=== PATIENT | female | born 1980 | race Caucasian/White ===

== ENCOUNTER 2018-02-16 08:49 | Emergency (ER) | payer OTHER ==
[~2018-02-16] VITALS: Ht 152.4 cm; Wt 76.7 kg
[2018-02-16 09:02] VITALS: Ht 152.4 cm; Wt 76.7 kg
[2018-02-16 10:25] VITALS: BP 118/69
== END 2018-02-16 10:25 | disposition home or self-care (01) ==
LOC: ED 08:49
DX: K04.7 Periapical abscess without sinus (principal)
CPT/HCPCS: J0696

== ENCOUNTER 2019-02-04 09:52 | Emergency (ER) | payer OTHER ==
[~2019-02-04] VITALS: Ht 144.8 cm; Wt 77.1 kg
[2019-02-04 10:03] VITALS: BP 121/59; Ht 144.8 cm; Wt 77.1 kg
== END 2019-02-04 10:24 | disposition home or self-care (01) ==
LOC: ED 09:52
DX: L03.221 Cellulitis of neck (principal)